=== PATIENT | female | born 1985 | race Caucasian/White ===

== ENCOUNTER 2018-05-21 16:32 | Emergency (ER) | payer SELFPAY ==
--- NOTE | 2018-05-21 16:42 | PDOC ---
Rapid Medical Evaluation Chief Complaint: Wound Time Seen by Provider: 05/21/18 16:36 Medical Evaluation: Allergies Allergy/AdvReac Type Severity Reaction Status Date / Time No Known Drug Allergies Allergy Verified 02/13/16 06:37 05/21/18 16:36 I have performed a brief in person evaluation of this patient The patient presents with a chief complaint of L posterior thigh and buttock abscess with redness for a week. no h/o abscess. No known exposure to MRSA. NO fever/vomiting Pertinent physical exam findings: In NAD, unlabored breathing. L posterior thigh with warmth and erythema along entirety of posterior thigh. I have ordered the following: CBC, CMP, PT/INR, UCG, IV access The patient will proceed to the ED for further eval 05/21/18 16:49 Discharge Disposition - Diagnosis Cellulitis Qualifiers: Site of cellulitis: extremity Site of cellulitis of extremity: lower extremity Laterality: left Qualified Code(s): L03.116 - Cellulitis of left lower limb - Referrals Referrals: Radha Ventura MD [Primary Care Provider] - - Patient Instructions - Post Discharge Activity
[2018-05-21 16:43] VITALS: BP 135/90; PULSE 100; TEMP 97.8; BMI 34.2
[2018-05-21 17:04] LABS: BASO % 0.5 % (0-2.0); EOS % 1.9 % (0-4.5); HEMATOCRIT 37.3 % (32.4-45.2); HEMOGLOBIN 12.5 GM/dL (10.7-15.3); LYMPH % 16.3 % (8-40); MCH 29.5 pg (25.7-33.7); MCHC 33.4 g/dl (32.0-36.0); MEAN CELL VOLUME 88.3 fl (80-96); MEAN PLT VOLUME 7.2 fl (7.5-11.1); MONO % 5.6 % (3.8-10.2); NEUT % 75.7 % (42.8-82.8); PLATELET COUNT 337 K/MM3 (134-434); RBC 4.22 M/mm3 (3.60-5.2); RDW 13.9 % (11.6-15.6); WHITE BLOOD COUNT 12.9 K/mm3 (4.0-10.0)
--- NOTE | 2018-05-21 17:18 | PDOC ---
Attending Attestation - Resident Resident Name: AlexlongArthur - ED Attending Attestation I have performed the following: I have examined & evaluated the patient, The case was reviewed & discussed with the resident, I agree w/resident's findings & plan - HPI HPI: 05/21/18 18:34 The patient is a 32 year old female, with a significant past medical history of myomectomy, who presents to the emergency department with,1 week of 2 abscesses. She notes one abscess on her left posterior thigh and one on her left buttock with associated redness. She denies a history of frequent abscesses or past MRSA infection. As per patient she visited her covering PCP Dr. Christy (covering Dr. Ventura) for her symptoms today who advised her to report to the ED for further evaluation and possible drainage. The patient was artificially inseminated via intrauterine embryo insemination and is unaware if she is currently . She denies recent fevers, chills, headache or dizziness. She denies recent nausea, vomit, diarrhea or constipation. She denies recent dysuria, frequency, urgency or hematuria. She denies recent chest pain or shortness of breath. Allergies: NKA Past surgical history: None reported. Social history: Nonsmoker. Denies EtOH use and recreational drug use. Primary Care Physician: Dr. Simental Attestations - Attestations 05/21/18 18:35 Documentation prepared by Chanel Crain, acting as director medical science for Gauri Louis MD.
--- NOTE | 2018-05-21 17:20 | PDOC ---
History of Present Illness - General Chief Complaint: Wound Stated Complaint: ABSCESS BOIL Time Seen by Provider: 05/21/18 16:36 History Source: Patient Exam Limitations: No Limitations - History of Present Illness Initial Comments: Marianne is a 32 yo F w a hx of myomectomy who present to the ER sent by Dr. Christy for drainage of two abscesses. She reports that she has a L posterior thigh and buttock abscess with redness for a week. She has never had an abscess in the past and does not believe she has ever had MRSA. Her pain began on thursday and has progressed to the point where a large area of her leg is erythematous and there are multiple abscesses. She states she has never had cellulitis in the past and has not taken any medications for it. She did have an intrauterine embryo insemination placed last week so she might be . This would be her first , but her 2nd insemination attempt. She denies any recent fevers or chills. Denies shortness of breath, difficulty breathing, back pain, abdominal pain, nausea, vomiting, dysuria, frequency, or urgency. Her PCP is Dr. Simental but she was not available today so the patient went to Dr. Christy. PCP: Dr. Simental Social hx: Denies cigarettes, alcohol, or illicit drug usage. Allergies: NKA, NKDA. Past History - Past Medical History Allergies/Adverse Reactions: Allergies Allergy/AdvReac Type Severity Reaction Status Date / Time No Known Drug Allergies Allergy Verified 05/21/18 16:40 Home Medications: Ambulatory Orders Erwin-3 Fatty Acids/Fish Oil [Fish Oil Pearls Softgel] 1 each PO DAILY 02/07/16 No122/Iron/Folic Acid [ Multi Tablet] 1 each PO DAILY 02/07/16 Oxycodone HCl/Acetaminophen [Percocet 5-325 mg Tablet -] 1 tab PO Q4H #20 tablet MDD 6 02/13/16 Cephalexin [Keflex Oral Suspension -] 500 mg PO QID 7 Days #30 ml 05/21/18 Cephalexin [Keflex Oral Suspension -] 500 mg PO QID 7 Days #30 ml 05/21/18 Anemia: No Asthma: No Cancer: No Cardiac Disorders: No CVA: No COPD: No CHF: No Dementia: No Diabetes: No GI Disorders: No Disorders: No HTN: No Hypercholesterolemia: No Liver Disease: No Seizures: No Thyroid Disease: No - Suicide/Smoking/Psychosocial Hx Smoking History: Never smoked Have you smoked in the past 12 months: No Information on smoking cessation initiated: No Hx Alcohol Use: No Drug/Substance Use Hx: No Substance Use Type: None Review of Systems - Review of Systems Able to Perform ROS?: Yes Is the patient limited Bulgarian proficient: Yes Constitutional: Yes: See HPI. No: Chills, Fever HEENTM: Yes: See HPI. No: Blurred Vision, Nose Congestion, Throat Swelling Respiratory: No: Cough, Shortness of Breath, Wheezing Cardiac (ROS): No: Chest Pain, Edema, Irregular Heart Rate, Lightheadedness, Palpitations, Syncope ABD/GI: No: Abdominal Distended, Constipated, Diarrhea, Nausea, Poor Fluid Intake, Vomiting : No: Burning, Dysuria, Discharge, Frequency, Hematuria, Urgency Musculoskeletal: No: Back Pain, Joint Pain, Joint Swelling, Muscle Pain Integumentary: Yes: Change in Color, Erythema, Lesions, Rash Neurological: No: Headache, Weakness, Unsteady Gait, Dizziness Psychiatric: No: Anxiety, Depression, Change in Appetite Endocrine: No: Excessive Sweating, Intolerance to Cold, Intolerance to Heat Hematologic/Lymphatic: No: Anemia, Blood Clots, Easy Bleeding *Physical Exam - Vital Signs Last Vital Signs Temp Pulse Resp BP Pulse Ox 97.8 F 100 H 16 135/90 100 05/21/18 16:38 05/21/18 16:38 05/21/18 16:38 05/21/18 16:38 05/21/18 16:38 - Physical Exam Comments: Left posterior leg: There is a cellulitic looking area with erythema and a hard painful area of swelling and indurance in the center. Left buttocks: There is another abscess on the buttock. General Appearance: Yes: Nourished, Appropriately Dressed, Obese. No: Apparent Distress HEENT: positive: EOMI, LUIS ALBERTO, Normal ENT Inspection, Normal Voice. negative: Scleral Icterus (R), Scleral Icterus (L), Pharyngeal Erythema, Rhinorrhea Neck: positive: Trachea midline, Supple. negative: Decreased range of motion, Lymphadenopathy (R), Lymphadenopathy (L) Respiratory/Chest: positive: Lungs Clear, Normal Breath Sounds. negative: Respiratory Distress, Crackles Cardiovascular: positive: Regular Rhythm, S1, S2, Tachycardia. negative: Edema , JVD, Murmur Vascular Pulses: Dorsalis-Pedis (R): 2+, Doralis-Pedis (L): 2+ Gastrointestinal/Abdominal: positive: Normal Bowel Sounds, Soft. negative: Distended, Guarding, Rebound Lymphatic: negative: Adenopathy Musculoskeletal: positive: Normal Inspection. negative: CVA Tenderness Extremity: positive: Normal Capillary Refill, Normal Inspection, Normal Range of Motion, Erythema (Posterior Left leg + Left buttock). 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-XII NML intact, Fully Oriented, Alert, Normal Mood/ Affect, Normal Response Procedures - Incision and Drainage I&D Site: Left: Leg (Posterior thigh) Betadine cleansed: Yes Anesthesia: 1% Lidocaine Volume(ml): 20 Blade Size: 11 Attempts: 1 Iodinated Packin in Plain Packing: No Complications: none Dressing: Yes ED Treatment Course - LABORATORY CBC & Chemistry Diagram: 05/21/18 16:55 05/21/18 16:55 - ADDITIONAL ORDERS Additional order review: Laboratory Results 05/21/18 16:55 Urine HCG, Qual Positive 05/21/18 16:55 RBC 4.22 MCV 88.3 MCHC 33.4 RDW 13.9 MPV 7.2 L Neutrophils % 75.7 D Lymphocytes % 16.3 D Monocytes % 5.6 Eosinophils % 1.9 Basophils % 0.5 Medical Decision Making - Medical Decision Making Marianne is a 32 yo F w a hx of myomectomy who present to the ER sent by Dr. Christy for drainage of two abscesses. Plan: Cbc, Cmp, Pt, hcg, US of abscesses, =/- drainage. Cbc showed an elevated wbc of 12.9 - likely the result of a cellulitis. We will treat this with cephalexin. The abscess on her buttock was significantly smaller then the abscess on her posterior left thigh. - The abscess on her Left posterior thigh was drained and packed with 2 inches of betadine tape. She was told to come back in two days for removal. Will also prescribe cephalexin for cellulitis and abscesses. - Urine HCG was found to be positive - patient was informed of status. *DC/Admit/Observation/Transfer Diagnosis at time of Disposition: Abscess Cellulitis Qualifiers: Site of cellulitis: extremity Site of cellulitis of extremity: lower extremity Laterality: left Qualified Code(s): L03.116 - Cellulitis of left lower limb - Discharge Dispostion Disposition: HOME Condition at time of disposition: Stable Decision to Admit order: No - Prescriptions Prescriptions: Cephalexin [Keflex Oral Suspension -] 500 mg PO QID 7 Days #30 ml Cephalexin [Keflex Oral Suspension -] 500 mg PO QID 7 Days #30 ml - Referrals Referrals: Radha Ventura MD [Primary Care Provider] - - Patient Instructions Printed Discharge Instructions: DI for Cellulitis -- Adult, DI for Anal Abscess , DI for Wound Infection Additional Instructions: Please make sure to come back to the ED in 2 days to have the packing removed and your wound evaluated. We sent a prescription to your pharmacy - please make sure to [facility] and pick it up. Take 500 mg four times a day for the next 7 days. Come back to the ER if your pain worsens, you develop a bad fever, or have any other new or worsening concerns. Thank you for coming to the [facility] ER. We hope you feel better soon! Print Language: THAI - Post Discharge Activity
[2018-05-21 17:33] LABS: ALBUMIN 3.4 g/dl (3.4-5.0); ALK PHOS 74 U/L (45-117); ANION GAP 7 MMOL/L (8-16); BILIRUBIN,TOTAL 0.2 mg/dL (0.2-1); BLOOD UREA NITROGEN 18 mg/dL (7-18); CALCIUM 8.9 mg/dL (8.5-10.1); CHLORIDE 107 mmol/L (98-107); CO2 24 mmol/L (21-32); CREATININE 0.8 mg/dL (0.55-1.3); GLUCOSE,RANDOM 85 mg/dL (74-106); POTASSIUM 4.2 mmol/L (3.5-5.1); SGOT/AST 26 U/L (15-37); SGPT/ALT 72 U/L (13-61); SODIUM 138 mmol/L (136-145); TOT PROT 7.5 g/dl (6.4-8.2)
[2018-05-21] MEDS ORDERED: LIDOCAINE HCL 2% (20ML MULTI-DOSE VIAL) NR ONE (17:59)
[2018-05-21 18:53] LABS: INR 0.92 (0.83-1.09); PROTHROMBIN TIME (PATIENT) 10.9 SEC (9.7-13.0)
== END 2018-05-21 21:13 | disposition home or self-care (01) ==
LOC: JER 16:32
PROC: 0J9M0ZZ Drainage of Left Upper Leg Subcutaneous Tissue and Fascia, Open Approach (ICD-10-PCS; principal; 2018-05-21)
DX: L03.116 Cellulitis of left lower limb (principal); L03.317 Cellulitis of buttock
CPT/HCPCS: 36415; 80053; 84702; 84703; 85025; 85610; 99281-25

== ENCOUNTER 2021-01-27 03:04 | Emergency (ER) | payer OTHER ==
[2021-01-27] MEDS ORDERED: ACETAMINOPHEN 325 MG TABLET (FP) PO ONE (03:16)
[2021-01-27 03:18] VITALS: BMI 39.4
[2021-01-27] MEDS ORDERED: ACETAMINOPHEN 325 MG TABLET (FP) ONE (03:40)
[2021-01-27 06:10] VITALS: BP 122/71; PULSE 93; TEMP 97.9
[2021-01-27 06:13] LABS: BASO % 0.2 % (0-2.0); EOS % 1.4 % (0-4.5); HEMOGLOBIN 11.5 GM/dL (10.7-15.3); LYMPH % 19.4 % (8-40); MCH 29.9 pg (25.7-33.7); MCHC 33.9 g/dl (32.0-36.0); MEAN CELL VOLUME 88.2 fl (80-96); MEAN PLT VOLUME 6.6 fl (7.5-11.1); PLATELET COUNT 279 K/MM3 (134-434); RBC 3.85 M/mm3 (3.60-5.2); RDW 15.5 % (11.6-15.6); WHITE BLOOD COUNT 8.2 K/mm3 (4.0-10.0)
== END 2021-01-27 09:55 | disposition home or self-care (01) ==
LOC: JER 03:04
DX: Z04.1 Encounter for examination and observation following transport accident (principal); Z3A.32 32 weeks gestation of pregnancy
CPT/HCPCS: 36415; 76819-TC; 85025; 86850; 86900; 86901; 93005; 93010; 99284-25

== ENCOUNTER 2021-03-11 08:13 | Inpatient (IN) | payer OTHER ==
[2021-03-11] MEDS: ELECTROLYTE-148 SOLN 1,000 ML IV SCH (09:00)
[2021-03-11] MEDS ORDERED: CITRIC ACID/SODIUM CITRATE 30 ML UNIT-DOSE CUP PO ONE (09:09)
[2021-03-11] MEDS ORDERED: BENZOCAINE 20% 57 GM BOTTLE TP PRN (09:10)
[2021-03-11] MEDS ORDERED: IBUPROFEN 800 MG/8 ML IJ IVPB PRN (09:10)
[2021-03-11] MEDS ORDERED: BENZOCAINE 28 GM HEMORRHOIDAL OINTMENT TP PRN (09:10)
[2021-03-11] MEDS ORDERED: WITCH HAZEL 50% (TUCKS) 40 PAD/JAR PAD TP PRN (09:10)
[2021-03-11] MEDS ORDERED: METHYLERGONOVINE MALEATE 0.2 MG/1 ML AMP IM PRN (09:10)
[2021-03-11] MEDS ORDERED: morphine SULFATE/PF 0.5 MG/ML (2cc Syringe - QUVA) ONE (09:19)
[2021-03-11] MEDS ORDERED: ceFAZolin SODIUM 1 GM VIAL ONE (09:20)
[2021-03-11] MEDS ORDERED: OXYTOCIN 10 UNITS/ML VIAL ONE (09:20)
[2021-03-11] MEDS ORDERED: KETOROLAC TROMETHAMINE 30 MG/1 ML VIAL ONE (09:20)
[2021-03-11] MEDS ORDERED: ONDANSETRON 4 MG/2 ML VIAL ONE (09:20)
[2021-03-11 09:51] VITALS: BMI 40.3
[2021-03-11] MEDS ORDERED: SODIUM CHLORIDE 0.9% P/F 10 ML VIAL IJ ONE (10:47)
[2021-03-11] MEDS ORDERED: morphine SULFATE/PF 0.5 MG/ML (2cc Syringe - QUVA) EP ONE (11:35)
[2021-03-11] MEDS: PRENATAL VITAMINS W/ FOLIC ACID TABLET (FP) PO SCH (11:44)
[2021-03-11] MEDS ORDERED: ONDANSETRON 4 MG/2 ML VIAL IVPUSH PRN (12:48)
[2021-03-11] MEDS ORDERED: ACETAMINOPHEN 1000 MG/100 ML VIAL (NON FORMULARY) IVPB ONE (12:50)
[2021-03-11] MEDS: OXYTOCIN 20 UNITS in 0.9% NS 20 UNIT/1,000 ML INFUS.BAG IV SCH (13:00)
[2021-03-11 13:14] LABS: CORD BASE EXCESS -3.1 mmol/L (0-2); CORD HCO3 22.6 mmHg (20-29); CORD PCO2 42.8 mmHg (30-78); CORD pH 7.34 (7.14-7.44)
[2021-03-11 13:26] LABS: CORD BASE EXCESS -4.2 mmol/L (0-2); CORD HCO3 21.2 mmHg (20-29); CORD pH 7.342 (7.14-7.44)
[2021-03-11] MEDS ORDERED: OXYTOCIN 20 UNITS in 0.9% NS 20 UNIT/1,000 ML INFUS.BAG IV ONE (13:34)
[2021-03-12 07:20] LABS: BASO % 0.4 % (0-2.0); EOS % 1.6 % (0-4.5); HEMATOCRIT 28.1 % (32.4-45.2); HEMOGLOBIN 9.6 GM/dL (10.7-15.3); LYMPH % 14.1 % (8-40); MCH 29.3 pg (25.7-33.7); MCHC 34.2 g/dl (32.0-36.0); MEAN CELL VOLUME 85.6 fl (80-96); MEAN PLT VOLUME 6.6 fl (7.5-11.1); MONO % 5.9 % (3.8-10.2); PLATELET COUNT 220 10^3/uL (134-434); RBC 3.28 M/mm3 (3.60-5.2); RDW 14.9 % (11.6-15.6); WHITE BLOOD COUNT 8.4 K/mm3 (4.0-10.0)
[2021-03-12] MEDS ORDERED: BISACODYL 10 MG SUPP.RECT RC PRN (09:10)
[2021-03-12] MEDS ORDERED: PRENATAL VITAMINS W/ FOLIC ACID TABLET (FP) PO SCH (10:00)
[2021-03-12] MEDS: PRENATAL VITAMINS W/ FOLIC ACID TABLET (FP) PO SCH (10:21)
[2021-03-12] MEDS: IBUPROFEN 600 MG TABLET (FP) PO PRN ×2 (14:16→21:10)
[2021-03-12] MEDS: ACETAMINOPHEN 325 MG TABLET (FP) PO PRN ×2 (14:16→21:11)
[2021-03-12] MEDS: SIMETHICONE 80 MG TAB.CHEW (FP) PO PRN ×2 (14:16→21:10)
[2021-03-12] MEDS: FERROUS SO4 325 MG TABLET (FP) PO SCH (18:00)
[2021-03-13] MEDS: ACETAMINOPHEN 325 MG TABLET (FP) PO PRN ×4 (03:44→21:53)
[2021-03-13] MEDS: IBUPROFEN 600 MG TABLET (FP) PO PRN ×3 (03:44→14:58)
[2021-03-13] MEDS: SIMETHICONE 80 MG TAB.CHEW (FP) PO PRN ×4 (03:44→21:52)
[2021-03-13] MEDS: FERROUS SO4 325 MG TABLET (FP) PO SCH ×2 (08:00→16:48)
[2021-03-13] MEDS: PRENATAL VITAMINS W/ FOLIC ACID TABLET (FP) PO SCH (15:18)
[2021-03-13] MEDS ORDERED: oxyCODONE HCL 5 MG TABLET PO PRN ×2 (21:32→21:33)
[2021-03-13] MEDS: ELECTROLYTE-148 SOLN 1,000 ML IV SCH (23:04)
[2021-03-13] MEDS: OXYTOCIN 20 UNITS in 0.9% NS 20 UNIT/1,000 ML INFUS.BAG IV SCH (23:04)
[2021-03-14] MEDS: IBUPROFEN 600 MG TABLET (FP) PO PRN (05:50)
[2021-03-14] MEDS: ACETAMINOPHEN 325 MG TABLET (FP) PO PRN (05:51)
[2021-03-14] MEDS: SIMETHICONE 80 MG TAB.CHEW (FP) PO PRN (05:51)
[2021-03-14] MEDS: FERROUS SO4 325 MG TABLET (FP) PO SCH (08:22)
[2021-03-14 08:40] LABS: BASO % 0.4 % (0-2.0); EOS % 3.5 % (0-4.5); HEMATOCRIT 28.6 % (32.4-45.2); HEMOGLOBIN 9.6 GM/dL (10.7-15.3); LYMPH % 20.7 % (8-40); MCH 29.2 pg (25.7-33.7); MCHC 33.7 g/dl (32.0-36.0); MEAN CELL VOLUME 86.7 fl (80-96); MEAN PLT VOLUME 6.5 fl (7.5-11.1); MONO % 5.6 % (3.8-10.2); NEUT % 69.8 % (42.8-82.8); PLATELET COUNT 314 10^3/uL (134-434); RDW 14.9 % (11.6-15.6); WHITE BLOOD COUNT 8.8 K/mm3 (4.0-10.0)
[2021-03-14] MEDS: PRENATAL VITAMINS W/ FOLIC ACID TABLET (FP) PO SCH (09:35)
[2021-03-14 13:41] VITALS: BP 125/81; PULSE 96; TEMP 98.6
== END 2021-03-14 13:05 | disposition home or self-care (01) | DRG 788 ==
LOC: JLDR 08:13 → J3W 15:00
PROVIDERS: ADMIT Obstetrics & Gynecology; ATTEND Obstetrics & Gynecology
PROC: 10D00Z1 Extraction of Products of Conception, Low, Open Approach (ICD-10-PCS; principal; 2021-03-11)
DX: O34.219 Maternal care for unspecified type scar from previous cesarean delivery (principal); O24.429 Gestational diabetes mellitus in childbirth, unspecified control; Z3A.38 38 weeks gestation of pregnancy; Z37.0 Single live birth
CPT/HCPCS: 36415; 36600; 82803; 82962; 85025; 87081; 88307-TC

== ENCOUNTER 2023-02-15 03:53 | Inpatient (IN) | payer OTHER ==
[2023-02-15] MEDS ORDERED: ELECTROLYTE-148 SOLN 500 ML IV ONE (04:35)
[2023-02-15] MEDS ORDERED: CITRIC ACID/SODIUM CITRATE 30 ML UNIT-DOSE CUP PO ONE (04:35)
[2023-02-15] MEDS ORDERED: ELECTROLYTE-148 SOLN 1,000 ML IV SCH ×2 (05:05→07:00)
[2023-02-15 05:10] VITALS: BMI 42.9
[2023-02-15] MEDS ORDERED: TERBUTALINE SULFATE 1 MG/1 ML VIAL SQ ONE ×2 (05:10→05:35)
[2023-02-15] MEDS ORDERED: OXYTOCIN 30 UNITS in 0.9% NS 30 UNIT/500 ML INFUS.BAG IVPB ONE (05:56)
[2023-02-15] MEDS ORDERED: ONDANSETRON 4 MG/2 ML VIAL ONE ×2 (05:58→07:14)
[2023-02-15] MEDS ORDERED: morphine SULFATE/PF 1 MG/2 ML (2cc Syringe - QUVA) ONE (05:58)
[2023-02-15] MEDS ORDERED: FENTANYL CITRATE/PF 50 MCG/ML VIAL ONE (05:58)
[2023-02-15] MEDS ORDERED: ceFAZolin SODIUM 1 GM VIAL ONE (05:58)
[2023-02-15] MEDS ORDERED: KETOROLAC TROMETHAMINE 30 MG/1 ML VIAL ONE (05:58)
[2023-02-15] MEDS ORDERED: DEXAMETHASONE SOD PHOSPHATE 4 MG/1 ML VIAL ONE (05:58)
[2023-02-15] MEDS ORDERED: LIGASURE IMPACT TP ONE (06:08)
[2023-02-15] MEDS ORDERED: ACETAMINOPHEN 325 MG TABLET (FP) PO PRN ×2 (06:09→08:58)
[2023-02-15] MEDS ORDERED: ONDANSETRON 4 MG/2 ML VIAL IVPUSH PRN (06:09)
[2023-02-15] MEDS ORDERED: IBUPROFEN 600 MG TABLET (FP) PO PRN (06:09)
[2023-02-15] MEDS ORDERED: PHENYLEPHRINE HCL 10 MG/1 ML SINGLE DOSE VIAL ONE (07:01)
[2023-02-15] MEDS ORDERED: OXYTOCIN 10 UNITS/ML VIAL ONE ×2 (07:41)
[2023-02-15] MEDS ORDERED: OXYTOCIN 20 UNITS in 0.9% NS 20 UNIT/1,000 ML INFUS.BAG IV ONE (07:58)
[2023-02-15] MEDS ORDERED: METHYLERGONOVINE MALEATE 0.2 MG/1 ML AMP IM PRN (08:58)
[2023-02-15] MEDS: OXYTOCIN 20 UNITS in 0.9% NS 20 UNIT/1,000 ML INFUS.BAG IV SCH ×2 (09:07→13:54)
[2023-02-15 09:24] LABS: CORD BASE EXCESS -4.3 mmol/L (0-2); CORD HCO3 23.3 mmHg (20-29); CORD PCO2 51.7 mmHg (30-78); CORD pH 7.272 (7.14-7.44)
[2023-02-15 09:26] LABS: CORD BASE EXCESS -4.6 mmol/L (0-2); CORD HCO3 21.3 mmHg (20-29); CORD PCO2 42.2 mmHg (30-78); CORD pH 7.321 (7.14-7.44)
[2023-02-15] MEDS ORDERED: ceFAZolin 2 GRAM PREMIX BAG IVPB SCH (10:00)
[2023-02-15] MEDS ORDERED: ENOXAPARIN NA (PORCINE) 40 MG/0.4 ML DISP.SYRIN SQ SCH (10:00)
[2023-02-15] MEDS ORDERED: CARBOPROST TROMETHAMINE 250 MCG/ML AMPUL IM ONE (11:30)
[2023-02-15 12:44] LABS: BASO % 0.2 % (0-2.0); EOS % 0.2 % (0-4.5); HEMATOCRIT 33.9 % (32.4-45.2); HEMOGLOBIN 11.5 GM/dL (10.7-15.3); LYMPH % 7.4 % (8-40); MCH 29.2 pg (25.7-33.7); MCHC 33.9 g/dl (32.0-36.0); MEAN CELL VOLUME 86.2 fl (80-96); MEAN PLT VOLUME 6.7 fl (7.5-11.1); MONO % 3.2 % (3.8-10.2); PLATELET COUNT 220 10^3/uL (134-434); RBC 3.94 M/mm3 (3.60-5.2); RDW 15.8 % (11.6-15.6); WHITE BLOOD COUNT 13.3 K/mm3 (4.0-10.0)
[2023-02-15] MEDS: METHYLERGONOVINE MALEATE 0.2 MG/1 ML AMP IM SCH ×3 (14:21→21:06)
[2023-02-15] MEDS: CEFAZOLIN SODIUM 2 GM in DEXTROSE 5%-WATER 100 ML IVPB SCH ×2 (15:53→22:29)
[2023-02-15] MEDS ORDERED: oxyCODONE HCL 5 MG TABLET PO PRN (20:58)
[2023-02-16] MEDS: IBUPROFEN 600 MG TABLET (FP) PO PRN ×4 (01:06→21:43)
[2023-02-16] MEDS: SIMETHICONE 80 MG TAB.CHEW (FP) PO PRN ×2 (01:06→21:40)
[2023-02-16] MEDS: METHYLERGONOVINE MALEATE 0.2 MG/1 ML AMP IM SCH ×3 (01:11→12:07)
[2023-02-16] MEDS: CEFAZOLIN SODIUM 2 GM in DEXTROSE 5%-WATER 100 ML IVPB SCH (05:59)
[2023-02-16 06:41] LABS: BASO % 0.5 % (0-2.0); EOS % 1.2 % (0-4.5); HEMATOCRIT 33.4 % (32.4-45.2); HEMOGLOBIN 11.2 GM/dL (10.7-15.3); LYMPH % 12.9 % (8-40); MCH 29.5 pg (25.7-33.7); MCHC 33.5 g/dl (32.0-36.0); MEAN PLT VOLUME 7.1 fl (7.5-11.1); MONO % 6.8 % (3.8-10.2); NEUT % 78.6 % (42.8-82.8); PLATELET COUNT 217 10^3/uL (134-434); RBC 3.79 M/mm3 (3.60-5.2); WHITE BLOOD COUNT 9.1 K/mm3 (4.0-10.0)
[2023-02-16] MEDS ORDERED: BISACODYL 10 MG SUPP.RECT RC PRN (08:58)
[2023-02-16] MEDS: ENOXAPARIN NA (PORCINE) 40 MG/0.4 ML DISP.SYRIN SQ SCH (09:42)
[2023-02-17] MEDS: IBUPROFEN 600 MG TABLET (FP) PO PRN ×2 (08:58→18:11)
[2023-02-17] MEDS: ENOXAPARIN NA (PORCINE) 40 MG/0.4 ML DISP.SYRIN SQ SCH (09:05)
[2023-02-17 22:07] VITALS: RESP 18
[2023-02-18 06:58] LABS: BASO % 0.6 % (0-2.0); EOS % 4.3 % (0-4.5); HEMATOCRIT 29.1 % (32.4-45.2); HEMOGLOBIN 9.8 GM/dL (10.7-15.3); LYMPH % 20.2 % (8-40); MCH 29.8 pg (25.7-33.7); MCHC 33.6 g/dl (32.0-36.0); MEAN CELL VOLUME 88.6 fl (80-96); MEAN PLT VOLUME 6.7 fl (7.5-11.1); MONO % 6.2 % (3.8-10.2); NEUT % 68.7 % (42.8-82.8); PLATELET COUNT 234 10^3/uL (134-434); RBC 3.29 M/mm3 (3.60-5.2); WHITE BLOOD COUNT 7.4 K/mm3 (4.0-10.0)
[2023-02-18] MEDS: IBUPROFEN 600 MG TABLET (FP) PO PRN (08:20)
[2023-02-18] MEDS: SIMETHICONE 80 MG TAB.CHEW (FP) PO PRN (08:20)
[2023-02-18 10:06] VITALS: BP 134/86; PULSE 73; TEMP 97.9
[2023-02-18 10:39] LABS: POC NITRAZINE POS
[2023-02-18] MEDS: ENOXAPARIN NA (PORCINE) 40 MG/0.4 ML DISP.SYRIN SQ SCH (10:48)
== END 2023-02-18 12:50 | disposition home or self-care (01) | DRG 785 ==
LOC: JLDR 03:53 → J3W 12:50
PROVIDERS: ADMIT Obstetrics & Gynecology; ATTEND Obstetrics & Gynecology
PROC: 10D00Z1 Extraction of Products of Conception, Low, Open Approach (ICD-10-PCS; principal; 2023-02-15)
PROC: 0UT70ZZ Resection of Bilateral Fallopian Tubes, Open Approach (ICD-10-PCS; 2023-02-15)
DX: O34.219 Maternal care for unspecified type scar from previous cesarean delivery (principal); O99.214 Obesity complicating childbirth; Z3A.39 39 weeks gestation of pregnancy; Z37.0 Single live birth; Z30.2 Encounter for sterilization
CPT/HCPCS: 36415; 36600; 82803; 83986-QW; 85025; 88302-TC; 88307-TC